=== PATIENT | female | born 1965 | race Caucasian/White ===

== ENCOUNTER → 2021-01-11 | Outpatient (CLI) | payer BC ==
--- NOTE | 2021-01-16 15:52 | RAD ---
EXAM: BILATERAL DIGITAL 3D SCREENING MAMMOGRAPHY. HISTORY: Routine mammographic screening. TECHNIQUE: Bilateral digital 3D and tomographic images were obtained in CC and MLO projections. Compu ter-aided detection was applied. COMPARISON: 12/15/2015, 04/20/2017, 04/28/2018, partial studies. COMPOSITION: B. There are scattered areas of fibroglandular density. FINDINGS: A few nodules bilaterally are stable and likely benign. Scattered calcifications are benign . There are no suspicious masses, microcalcifications or architectural distortion. The parenchymal pa ttern is stable. BI-RADS CATEGORY 2: Benign. RECOMMENDATION: 1. Routine screening mammography in one year. If mammography demonstrates dense breast tissue (heterogenously dense or extremely dense, category C or D), which could hide abnormalities, and if other risk factors for breast cancer have been identifi ed, supplemental screening tests that may be suggested by the ordering physician may be of benefit. D ense breast tissue, in and of itself, is a relatively common condition. Therefore, this information i s not provided to cause undue concern, but rather to raise awareness and to promote discussion with t he referring physician regarding the presence of other risk factors, in addition to dense breast tiss ue. The results of this mammography examination is provided to the patient and referring physician. T he patient should contact their referring physician if any questions or concerns exist regarding this report. PQRS compliance statement - Patient information was entered into a reminder system with a target due date for the next mammogram. "Our facility is accredited by the [employer] Mammography Program." Electronically signed by: Roxane Villegas MD (01/16/2021 3:49 PM) [facility]
== END ==
LOC: MAMMO 09:16
PROVIDERS: ATTEND Family Medicine
DX: Z12.31 Encounter for screening mammogram for malignant neoplasm of breast (principal)
CPT/HCPCS: 77063; 77067

== ENCOUNTER 2021-08-30 18:39 | Emergency (ER) | payer BC, OTHER ==
[~2021-08-30] VITALS: Ht 157.5 cm; Wt 93.7 kg
[2021-08-30] MEDS ORDERED: ONDANSETRON PF 4 MG/2 ML VIAL. ONE (19:02)
[2021-08-30] MEDS ORDERED: METOCLOPRAMIDE HCL 10 MG/2 ML VIAL. ONE (19:02)
[2021-08-30] MEDS ORDERED: IOHEXOL 350 MG/ML 100 ML VIAL. ONE (19:06)
[2021-08-30] MEDS ORDERED: ONDANSETRON PF 4 MG/2 ML VIAL. IVP ONE (19:15)
[2021-08-30] MEDS ORDERED: METOCLOPRAMIDE HCL 10 MG/2 ML VIAL. IVP ONE (19:15)
[2021-08-30] MEDS ORDERED: IOHEXOL 350 MG/ML 100 ML VIAL. IV ONE (19:15)
[2021-08-30 19:24] LABS: BASO # 0.1 x10^3/uL (0.0-0.2); BASO % 0 % (0-3); EOS # 0.2 x10^3/uL (0.0-0.7); EOS % 2 % (0-3); HEMATOCRIT 39.5 % (36.0-47.0); HEMOGLOBIN 13.4 g/dL (12.0-15.5); LYMPH # 1.8 x10^3/uL (1.0-4.8); LYMPH % 13 % (24-48); MEAN CORPUSCULAR HEMOGLOBIN 33 pg (25-35); MEAN CORPUSCULAR HGB CONC 34 g/dL (31-37); MEAN CORPUSCULAR VOLUME 97 fL (79-100); MONO # 0.6 x10^3/uL (0.0-1.1); MONO % 4 % (0-9); NEUT % 81 % (31-73); PLATELET COUNT 257 x10^3/uL (140-400); RED BLOOD COUNT 4.08 x10^6/uL (3.50-5.40); RED CELL DISTRIBUTION WIDTH 13.1 % (11.5-14.5); WHITE BLOOD COUNT 13.7 x10^3/uL (4.0-11.0)
--- NOTE | 2021-08-30 19:27 | PHYS DOC ---
Past History Additional Past Medical Histor: RA (PARTH HERNANDEZ APRN) Past Surgical History: Lumbar Laminectomy (PARTH HERNANDEZ APRN) Smoking: Non-smoker Alcohol Use: None Drug Use: None (PARTH HERNANDEZ APRN) General Adult EDM: Chief Complaint: NAUSEA/VOMITING/DIARRHEA HPI: HPI: Patient is a 56-year-old female who presented today via [facility] with dizziness. Patient states around 5 PM tonight she was driving home from work she has had a sudden onset of dizziness which required her to pull off to the side of the road, she then had an episode of vomiting while in her car then she had a sudden onset of the back of her head headache. Patient states she then called her dad and her dad and sister came and since the patient could not get out of the car to walk they called 911 for evaluation of this patient. Patient states she has not had a loss of consciousness has not had any trauma to her head. She said this was a sudden onset. Patient denies chest pain or shortness of air fever or cough at this time. Patient states she does not take any anticoagulation therapy. (PARTH HERNANDEZ APRN) Review of Systems: Review of Systems: Constitutional: Denies fever or chills Eyes: Denies change in visual acuity HENT: Denies nasal congestion or sore throat Respiratory: Denies cough or shortness of breath Cardiovascular: Denies chest pain or edema GI: Denies abdominal pain, nausea, vomiting, bloody stools or diarrhea : Denies dysuria Musculoskeletal: Denies back pain or joint pain Integument: Denies rash Neurologic: Denies headache, focal weakness or sensory changes Endocrine: Denies polyuria or polydipsia Lymphatic: Denies swollen glands Psychiatric: Denies depression or anxiety (PARTH HERNANDEZ APRN) Current Medications: Current Meds: no anticoagulation therapy Current Medications Medications (Trade) Dose Ordered Sig/Oziel Start Time Stop Time Status Last Admin Dose Admin Iohexol (Omnipaque 350 Mg/ml) 100 ml STK-MED ONCE 08/30/21 19:06 08/30/21 19:06 DC Metoclopramide HCl (Reglan Vial) 10 mg STK-MED ONCE 08/30/21 19:02 08/30/21 19:03 DC Ondansetron HCl (Zofran) 8 mg 1X ONCE 08/30/21 19:15 08/30/21 19:16 08/30/21 19:08 8 MG (PARTH HERNANDEZ APRN) Allergies: Allergies: Allergies Coded Allergies Type Severity Reaction Last Updated Verified Penicillins Allergy Unknown 08/30/21 Yes methotrexate Allergy Unknown 08/30/21 Yes (PARTH HERNANDEZ APRN) Physical Exam: PE: Constitutional: Well developed, well nourished, no acute distress, non-toxic appearance. [] HENT: Normocephalic, atraumatic, bilateral external ears normal, oropharynx moist, no oral exudates, nose normal. [] Eyes: PERRLA, EOMI, conjunctiva normal, no discharge. [] Neck: Normal range of motion, no tenderness, supple, no stridor. [] Cardiovascular:Heart rate regular rhythm, no murmur [] Lungs & Thorax: Bilateral breath sounds clear to auscultation [] Abdomen: Bowel sounds normal, soft, no tenderness, no masses, no pulsatile masses. [] Skin: Warm, dry, no erythema, no rash. [] Back: No tenderness, no CVA tenderness. [] Extremities: No tenderness, no cyanosis, no clubbing, ROM intact, no edema. [] Neurologic: Alert and oriented X 3, normal motor function, normal sensory function, no focal deficits noted. [] Psychologic: Affect normal, judgement normal, mood normal. [] (PARTH HERNANDEZ APRN) Current Patient Data: Labs: Laboratory Tests Test 08/30/21 18:56 08/30/21 19:01 White Blood Count 13.7 x10^3/uL Red Blood Count 4.08 x10^6/uL Hemoglobin 13.4 g/dL Hematocrit 39.5 % Mean Corpuscular Volume 97 fL Mean Corpuscular Hemoglobin 33 pg Mean Corpuscular Hemoglobin Concent 34 g/dL Red Cell Distribution Width 13.1 % Platelet Count 257 x10^3/uL Neutrophils (%) (Auto) 81 % Lymphocytes (%) (Auto) 13 % Monocytes (%) (Auto) 4 % Eosinophils (%) (Auto) 2 % Basophils (%) (Auto) 0 % Neutrophils # (Auto) 11.0 x10^3uL Lymphocytes # (Auto) 1.8 x10^3/uL Monocytes # (Auto) 0.6 x10^3/uL Eosinophils # (Auto) 0.2 x10^3/uL Basophils # (Auto) 0.1 x10^3/uL Prothrombin Time 10.6 SEC Prothromb Time International Ratio 1.0 Activated Partial Thromboplast Time 22 SEC Sodium Level 139 mmol/L Potassium Level 3.4 mmol/L Chloride Level 103 mmol/L Carbon Dioxide Level 22 mmol/L Anion Gap 14 Blood Urea Nitrogen 20 mg/dL Creatinine 0.9 mg/dL Estimated GFR (Cockcroft-Gault) 64.5 BUN/Creatinine Ratio 22 Glucose Level 159 mg/dL Calcium Level 9.1 mg/dL Total Bilirubin 0.6 mg/dL Aspartate Amino Transf (AST/SGOT) 13 U/L Alanine Aminotransferase (ALT/SGPT) 18 U/L Alkaline Phosphatase 99 U/L Troponin I High Sensitivity 4 ng/L Total Protein 6.9 g/dL Albumin 3.9 g/dL Albumin/Globulin Ratio 1.3 Lipase 36 U/L Glucose (Fingerstick) 113 mg/dL Current Medications Medications (Trade) Dose Ordered Sig/Oziel Route PRN Reason Start Time Stop Time Status Last Admin Dose Admin Ondansetron HCl (Zofran) 4 mg STK-MED ONCE .ROUTE 08/30/21 19:02 08/30/21 19:02 DC Ondansetron HCl (Zofran) 8 mg 1X ONCE IVP 08/30/21 19:15 08/30/21 19:16 DC 08/30/21 19:08 Metoclopramide HCl (Reglan Vial) 10 mg 1X ONCE IVP 08/30/21 19:15 08/30/21 19:16 DC 08/30/21 19:08 Metoclopramide HCl (Reglan Vial) 10 mg STK-MED ONCE .ROUTE 08/30/21 19:02 08/30/21 19:03 DC Iohexol (Omnipaque 350 Mg/ml) 75 ml 1X ONCE IV 08/30/21 19:15 08/30/21 19:16 DC 08/30/21 19:26 Iohexol (Omnipaque 350 Mg/ml) 100 ml STK-MED ONCE .ROUTE 08/30/21 19:06 08/30/21 19:06 DC Lorazepam (Ativan Inj) 1 mg 1X ONCE IVP 08/30/21 20:00 08/30/21 20:01 Nicardipine HCl 50 mg/Sodium Chloride 250 ml @ 25 mls/hr CONT PRN IV PER PROTOCOL 08/30/21 20:00 Laboratory Tests Test 08/30/21 19:01 Glucose (Fingerstick) 113 mg/dL (70-99) H Vital Signs: Vital Signs Date Time Temp Pulse Resp B/P (MAP) Pulse Ox O2 Delivery O2 Flow Rate FiO2 08/30/21 18:48 98.0 80 16 170/68 (102) 96 Room Air (PARTH HERNANDEZ APRN) EKG: EKG: EKG done at [address] Barba at 1930 no STEMI sinus rhythm with no ectopy rate of 87 GA interval of 148 ms with a QTC of 492 ms [] (PARTH HERNANDEZ APRN) Radiology/Procedures: Radiology/Procedures: REASON: CODE STROKE, sudden onset headache and vomiting, ams PROCEDURE: CT CODE STROKE HEAD WO EXAM: CT head without contrast INDICATION: Code stroke. Sudden onset of headache and vomiting, altered mental status. COMPARISON: None TECHNIQUE: Axial CT imaging through the head without intravenous contrast. Sagittal and coronal reformats were obtained. One or more of the following individualized dose reduction techniques were utilized for this examination: 1. Automated exposure control 2. Adjustment of the mA and/or kV according to patient size 3. Use of iterative reconstruction technique. FINDINGS: There is acute intraventricular hemorrhage in the lateral, third, and fourth ventricles. Small amount of subarachnoid hemorrhage in the prepontine cistern. Ventricles and sulci are normal in size. No midline shift. Lunsford-white matter differentiation is maintained. There are findings of chronic sinusitis in the left maxillary sinus. Remaining paranasal sinuses and mastoid air cells are clear. Globes and orbits are intact. There is no skull fracture. There is a 1.3 x 1.0 cm exostosis of the right parieto-occipital skull. The scalp is intact. IMPRESSION: Intraventricular hemorrhage in the lateral, third, and fourth ventricles. Small amount of subarachnoid hemorrhage in the prepontine cistern. No midline shift. FOR INTERNAL CODING PURPOSES Critical result: Findings discussed with PARTH HERNANDEZ APRN at 08/30/2021 720 PM. RESULT CODE: (C) Electronically signed by: Tatiana Mullins MD (08/30/2021 7:29 PM) [id number] [] (PARTH HERNANDEZ APRN) Heart Score: C/O Chest Pain: N/A Risk Factors: Risk Factors: DM, Current or recent (<one month) smoker, HTN, HLP, family history of CAD, obesity. Risk Scores: Score 0 - 3: 2.5% MACE over next 6 weeks - Discharge Home Score 4 - 6: 20.3% MACE over next 6 weeks - Admit for Clinical Observation Score 7 - 10: 72.7% MACE over next 6 weeks - Early Invasive Strategies (PARTH HERNANDEZ APRN) Course & Med Decision Making: Course & Med Decision Making Pertinent Labs and Imaging studies reviewed. (See chart for details) []1914 contacted [facility] for transfer. [address] Singh with [facility] and they have accepted this patient for care in the neurosurgical intensive care unit, they have requested that a Cardene drip be started on the patient to keep systolic blood pressures less than 120. Patient's family and patient was informed of the transfer and they are agreeable to the transfer. Patient's neurological assessment continues to be normal no deficits noted, patient continues to have some nausea did give a milligram of Ativan to help with the nausea and the anxiety the patient is experiencing. Blood pressure currently is 140/68, sats of 98% heart rate of 95 sinus rhythm (PARTH HERNANDEZ APRN) Course & Med Decision Making Agree with CULTURIST's work-up and disposition per note. (JOVANA BARBA MD) Dragon Disclaimer: Dragon Disclaimer: This electronic medical record was generated, in whole or in part, using a voice recognition dictation system. (PARTH HERNANDEZ APRN) Departure Departure: Impression: Primary Impression: Intraventricular hemorrhage Disposition: 02 SHORT TERM HOSPITAL Condition: GUARDED Referrals: ARPIT MEZA (PCP) PARTH HERNANDEZ APRN Aug 30, 2021 19:27 JOVANA BARBA MD Aug 30, 2021 21:37
--- NOTE | 2021-08-30 19:32 | RAD ---
EXAM: CT head without contrast INDICATION: Code stroke. Sudden onset of headache and vomiting, altered mental status. COMPARISON: None TECHNIQUE: Axial CT imaging through the head without intravenous contrast. Sagittal and coronal refor mats were obtained. One or more of the following individualized dose reduction techniques were utilized for this examinat ion: 1. Automated exposure control 2. Adjustment of the mA and/or kV according to patient size 3. Use of iterative reconstruction technique. FINDINGS: There is acute intraventricular hemorrhage in the lateral, third, and fourth ventricles. Small amount of subarachnoid hemorrhage in the prepontine cistern. Ventricles and sulci are normal in size. No mi dline shift. Lunsford-white matter differentiation is maintained. There are findings of chronic sinusitis in the left maxillary sinus. Remaining paranasal sinuses and mastoid air cells are clear. Globes and orbits are intact. There is no skull fracture. There is a 1.3 x 1.0 cm exostosis of the right pariet o-occipital skull. The scalp is intact. IMPRESSION: Intraventricular hemorrhage in the lateral, third, and fourth ventricles. Small amount of subarachnoid hemorrhage in the prepontine cistern. No midline shift. FOR INTERNAL CODING PURPOSES Critical result: Findings discussed with PARTH HERNANDEZ APRN at 08/30/2021 720 PM. RESULT CODE: (C) Electronically signed by: Tatiana Mullins MD (08/30/2021 7:29 PM) [id number]
[2021-08-30 19:33] LABS: CALCIUM 9.1 mg/dL (8.5-10.1); CREATININE 0.9 mg/dL (0.6-1.0); GFR 64.5; POTASSIUM 3.4 mmol/L (3.5-5.1)
[2021-08-30 19:39] LABS: ALBUMIN 3.9 g/dL (3.4-5.0); ALBUMIN/GLOBULIN RATIO 1.3 (1.0-1.7); TOTAL BILIRUBIN 0.6 mg/dL (0.2-1.0); TOTAL PROTEIN 6.9 g/dL (6.4-8.2)
[2021-08-30] MEDS ORDERED: IV NORMAL SALINE 250ML 250 ML ONE (20:02)
[2021-08-30] MEDS ORDERED: niCARdipine INJ. IV ONE ×2 (20:03)
--- NOTE | 2021-08-30 20:15 | EKG ---
[address] [address] Test Date: 2021-08-30 Test Time: 19:28:25 Pat Name: NATALIA WILD Department: Room: Gender: F Sign Language Instructor: JAMISON : 1965 Requested By: PARTH HERNANDEZ Order Number: [id number] Reading MD: Ken Diggs MD Measurements Intervals Vanderbilt Rate: 87 P: -49 DE: 148 QRS: 0 QRSD: 92 T: 25 QT: 408 QTc: 492 Interpretive Statements SR NON-SPECIFIC ST/T CHANGES Electronically Signed On 08-30-2021 20:37:21 LOGGING OPERATIONS INSPECTOR by Ken Diggs MD
[2021-08-30 20:17] VITALS: BP 157/86
--- NOTE | 2021-08-30 20:21 | RAD ---
STUDY: CT angiography of the head and neck INDICATION: Sudden onset headache and vomiting COMPARISON: CT head same day TECHNIQUE: Axial CT imaging of the head and neck utilizing angiography protocol and performed after t he intravenous administration of 75 mL Omnipaque 350 contrast. Precontrast imaging through the head w as performed as well. Multiplanar reformats and 3D MIP acquisitions were obtained. Encountered areas of stenosis are measured per NASCET criteria. One or more of the following individualized dose reduction techniques were utilized for this examinat ion: 1. Automated exposure control 2. Adjustment of the mA and/or kV according to patient size 3. Use of iterative reconstruction technique. FINDINGS: CTA NECK: Arch/Proximal Great Vessels: Enlarged common origin of the brachiocephalic and left common carotid me asuring 2 cm. Great vessel origins are patent. Carotid Bifurcation/Cervical ICA: Common, internal, and external carotid arteries are normal in calib er and patent. Vertebral Arteries: Vertebral arteries are normal in caliber and patent. CTA HEAD: Posterior Circulation: A 10 x 5 x 5 mm enhancing nodule along vessels in the superior cerebellum at m idline is suspicious for a vascular malformation (image 59, series 4). Suspected additional 5 x 4 x 3 mm vascular malformation in the fourth ventricle (image 66, series 4). Intradural vertebral arterie s, basilar artery, and proximal superior cerebellar arteries are normal. Near- origin of the pos terior cerebral arteries, which are patent. Anterior Circulation: The intracranial carotid arteries are normal in caliber and patent. Middle cere bral arteries and anterior cerebral arteries are normal in caliber and patent. Veins: Dural venous sinuses are patent. MISCELLANEOUS: Lung apices are clear. No acute osseous abnormality. IMPRESSION: 1. 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 3. Unchanged intraventricular hemorrhage and small subarachnoid hemorrhage in the prepontine cistern. FOR INTERNAL CODING PURPOSES Critical result: Findings discussed with the ER physician at 08/30/2021 7:58 PM. RESULT CODE: (C) Electronically signed by: Tatiana Mullins MD (08/30/2021 8:19 PM) [id number]
[2021-08-30 20:46] LABS: INFLUENZA A PATIENT NEGATIVE (NEGATIVE); INFLUENZA B PATIENT NEGATIVE (NEGATIVE)
== END 2021-08-30 20:26 | disposition short-term general hospital (02) ==
LOC: ER 18:39
DX: S06.360A Traumatic hemorrhage of cerebrum, unspecified, without loss of consciousness, initial encounter (principal); X58.XXXA Exposure to other specified factors, initial encounter; Y93.89 Activity, other specified; Y92.89 Other specified places as the place of occurrence of the external cause; Y99.8 Other external cause status
CPT/HCPCS: 36415; 70450; 70496; 70498; 80053; 82947; 83690; 84484; 85025; 85610; 85730; 93005; 96365; 96375; 99285; J2060; J2405; J2765; J7050; Q9967